=== PATIENT | male | born 1950 | race Caucasian/White ===

== ENCOUNTER → 2021-10-07 | Outpatient (CLI) | payer MEDICARE | LOC: CARDFS 13:56 | PROVIDERS: ATTEND Nurse Practitioner Family | DX: I11.9 Hypertensive heart disease without heart failure (principal); I49.9 Cardiac arrhythmia, unspecified; I49.3 Ventricular premature depolarization | CPT/HCPCS: 93306 ==

== ENCOUNTER → 2021-10-22 | Outpatient (CLI) | payer MEDICARE ==
[2021-10-22 13:45] VITALS: BP 168/88
--- NOTE | 2021-10-22 15:14 | Cardiology Stress Test Report ---
Stress Test Report Date of Procedure/Referring: Date of Procedure: Oct 22, 2021 PCP Myranda Herrera MD Admitting Physician Admitting Physician: Attending Physician: Mitra Rivera Aprn Indications: cardiac arrhythmia Baseline Heart Rate: 77 Baseline Blood Pressure: Blood Pressure Systolic: 168 Blood Pressure Diastolic: 88 Baseline EKG: Baseline EKG: NSR Summary/Conclusion: Summary: In summary, the patient started exercising with a baseline heart rate, blood pressure and EKG mentioned above Patient was able to exercise for a total of 4 minutes on Yeison protocol, METs 5.8 Maximum heart rate 137 Maximum blood pressure 216/112 Stress EKG, Minimal nondiagnostic changes Recovery EKG , Return to baseline Conclusion: 1. Fair exercise tolerance for 4 minutes on standard Yeison protocol, 5.8 METS achieving maximal heart rate 137, 93% of maximal expected heart rate 2. Hypertensive response to exercise with peak blood pressure 216/112 return to baseline during recovery 3. Nondiagnostic EKG changes with exercise return to baseline during recovery 4. Frequent PVCs noted early during stress test and persisted during stress test and early recovery. 5. Recommend evaluating exercise Myoview stress test. Copy Copies To 1: [facility] – [place] Copies To 2: MYRANDA HERRERA MD, BASHAR J MD Oct 22, 2021 15:14
== END ==
LOC: CARD 14:00
PROVIDERS: ATTEND Nurse Practitioner Family
DX: I49.9 Cardiac arrhythmia, unspecified (principal); I49.3 Ventricular premature depolarization; I10 Essential (primary) hypertension
CPT/HCPCS: 93017